=== PATIENT | male | born 1955 | race African-American/Black ===

== ENCOUNTER 2021-09-01 08:59 | Emergency (ER) | payer OTHER ==
[~2021-09-01] VITALS: Ht 167.6 cm; Wt 79.4 kg
[2021-09-01 09:26] VITALS: BP 166/108
[2021-09-01 09:55] LABS: ABSOLUTE NEUTROPHILS 1.3 thou/uL (1.4-8.2); BASOPHILS 0.5 % (0.0-2.0); EOSINOPHILS 4.1 % (0.0-3.0); HEMOGLOBIN 13.9 gm/dL (14.0-18.0); LYMPHOCYTES 49.4 % (24.0-44.0); MCH 27.6 pg (26.0-34.0); MCHC 32.2 g/dL (28.0-37.0); MCV 85.5 fL (80.0-100.0); MONOCYTES 12.3 % (1.0-8.0); PLATELET COUNT 235 thou/uL (150-400); POLYS 33.7 % (36.0-66.0); RBC 5.03 mil/uL (4.50-6.00); RDW 14.6 % (10.5-14.5); WBC 3.9 thou/uL (4.0-11.0)
[2021-09-01 10:03] LABS: CALCIUM 9.2 mg/dL (8.5-10.1); POTASSIUM 4.2 mmol/L (3.5-5.1)
[2021-09-01 10:13] LABS: ALBUMIN 3.8 g/dL (3.4-5.0); DIRECT BILIRUBIN 0.1 mg/dL (<0.1-0.2); TOTAL BILIRUBIN 0.5 mg/dL (0.2-1.0); TOTAL PROTEIN 7.8 g/dL (6.4-8.2)
[2021-09-01] MEDS ORDERED: MOBIC15 MG PO (13:06)
--- NOTE | 2021-09-01 13:47 | EKG ---
[address] [address] [place] [address] ELECTROCARDIOGRAM REPORT Name: MARIANNA QUINTANILLA [id number] Admission: 09/01/21 Attend Phys: Discharge: 09/01/21 Date of : 55 Report #: [id number] [facility] ED Test Date: 2021-09-01 Test Time: 11:51:01 Pat Name: MARIANNA QUINTANILLA Department: Room: Gender: Tool Engineer: : 1955 Requested By: Bree Andres Order Number: [id number] MD: Ignacio Sousa Measurements Intervals [place] Rate: 63 P: 16 MS: 243 QRS: 2 QRSD: 97 T: 180 QT: 425 QTc: 436 Interpretive Statements Sinus rhythm Prolonged MS interval Probable left atrial enlargement Abnrm T, probable ischemia, anterolateral lds No previous ECG available for comparison Electronically Signed On 09-01-2021 13:47:49 CDT by Ignacio Sousa [email or web address] <ELECTRONICALLY SIGNED> By: Ignacio Sousa MD, [facility] 09/01/21 1347 1151 1151 Ignacio Sousa MD, FACC /EPI
== END 2021-09-01 13:43 | disposition home or self-care (01) ==
LOC: ER 08:59
PROVIDERS: Emergency Medicine
DX: S43.492A Other sprain of left shoulder joint, initial encounter (principal); I10 Essential (primary) hypertension; W07.XXXA Fall from chair, initial encounter; Y93.89 Activity, other specified; Y92.89 Other specified places as the place of occurrence of the external cause; Y99.9 Unspecified external cause status